=== PATIENT | female | born 1995 | race African-American/Black ===

== ENCOUNTER 2020-12-27 06:18 | Inpatient (IN) | payer MEDICAID ==
[~2020-12-27] VITALS: Ht 180.3 cm; Wt 111.9 kg
[2020-12-27] MEDS ORDERED: HALOPERIDOL 5 MG TABLET PO PRN (08:45)
[2020-12-27] MEDS ORDERED: LORazepam 1 MG TABLET PO PRN (08:45)
[2020-12-27] MEDS ORDERED: ZOLPIDEM TARTRATE 10 MG TABLET PO PRN (08:45)
[2020-12-27] MEDS ORDERED: DiphenhydrAMINE HCL 50 MG/ML VIAL IM ONE (09:15)
[2020-12-27] MEDS ORDERED: HALOPERIDOL LACTATE 5 MG/ML VIAL IM ONE (09:15)
[2020-12-27] MEDS ORDERED: LORazepam 2 MG/ML VIAL IM ONE (09:15)
[2020-12-27] MEDS ORDERED: INFLUENZA VIRUS VACCINE QVS 2020-21 (6MO+)/PF 60 MCG/0.5 ML SYRINGE IM ONE (12:45)
[2020-12-27 16:09] VITALS: BP 133/88
[2020-12-28] VITALS: BP 136/74
[2020-12-28] MEDS ORDERED: BENZOCAINE/MENTHOL LOZENGE PO PRN (06:15)
[2020-12-28] MEDS ORDERED: BACITRACIN 28 GM OINTMENT TP PRN (06:15)
[2020-12-28] MEDS ORDERED: MAG HYDROX/AL HYDROX/SIMETH ES 30 ML SUSPENSION UDCUP PO PRN (06:15)
[2020-12-28] MEDS ORDERED: DOCUSATE SODIUM 100 MG CAPSULE PO PRN (06:15)
[2020-12-28] MEDS ORDERED: ACETAMINOPHEN 325 MG TABLET PO PRN (06:15)
[2020-12-28] MEDS ORDERED: ONDANSETRON HCL 4 MG TABLET PO PRN (06:15)
[2020-12-28] MEDS ORDERED: ALBUTEROL SULFATE HFA 90 MCG/PUFF 8 GM INHALER IH PRN (06:15)
[2020-12-28] MEDS ORDERED: OMEPRAZOLE 20 MG CAPSULE PO PRN (06:15)
[2020-12-28] MEDS ORDERED: PETROLATUM,WHITE 28 GM JELLY TP PRN (06:15)
[2020-12-28] MEDS ORDERED: MAGNESIUM HYDROXIDE SUSPENSION 30 ML UDCUP PO PRN (06:15)
[2020-12-28] MEDS ORDERED: LOPERAMIDE HCL 2 MG CAPSULE PO PRN (06:15)
[2020-12-28] MEDS ORDERED: IBUPROFEN 600 MG TABLET PO PRN (06:15)
[2020-12-28] MEDS ORDERED: CloNIDine HCL 0.1 MG TABLET PO PRN (06:15)
[2020-12-28 08:15] VITALS: BP 126/73
[2020-12-28 20:05] VITALS: BP 130/92
[2020-12-29 00:34] VITALS: BP 124/86
[2020-12-29 08:09] VITALS: BP 129/82
[2020-12-29 09:24] LABS: BASOPHILS % (AUTO) 0.4 % (0.0-2.0); EOSINOPHILS % (AUTO) 1.2 % (1.0-6.0); HEMATOCRIT 36.8 % (36-46); HEMOGLOBIN 12.4 g/dL (12.0-16.0); LYMPHOCYTES % (AUTO) 15.9 % (22.0-44.0); MEAN CORPUSCULAR HEMOGLOBIN 32.1 pg (26.0-34.0); MEAN CORPUSCULAR HGB CONC 33.7 G/dL (31.0-37.0); MEAN CORPUSCULAR VOLUME 95 fL (80-100); MONOCYTES # (AUTO) 0.7 K/uL (0.1-1.0); MONOCYTES % (AUTO) 5.5 % (2.0-9.0); NEUTROPHILS # (AUTO) 9.6 K/uL (1.8-7.7); PLATELET COUNT (AUTO) 277 K/uL (150-450); RED BLOOD CELL COUNT(AUTO) 3.86 MIL/uL (4.00-5.20); RED CELL DISTRIBUTION WIDTH 13.8 % (11.5-14.5)
[2020-12-29 09:34] LABS: HEMOGLOBIN A1C 4.7 % (3.8-5.6)
[2020-12-29 09:56] LABS: ALANINE AMINOTRANSFERASE 25 U/L (12-78); ALKALINE PHOSPHATASE 90 U/L (46-116); ANION GAP 13 mmol/L (8-16); ASPARTATE AMINOTRANSFERASE 18 U/L (15-37); BILIRUBIN,TOTAL 0.7 mg/dL (0.1-1.0); CALCIUM, TOTAL 9.9 mg/dL (8.8-10.5); CARBON DIOXIDE 26 mmol/L (22-29); CHLORIDE 97 mmol/L (98-107); CHOLESTEROL 246 mg/dL (131-200); CREATININE 0.93 mg/dL (0.60-1.30); FREE T4 (FREE THYROXINE) 1.39 ng/dL (0.76-1.46); GLOMERULAR FILTR. RATE CALC > 60 mL/min (>60); GLUCOSE,RANDOM 106 mg/dL (70-110); HCG,QUANTITATIVE < 1 mIU/mL (0-6); HDL CHOLESTEROL 41 mg/dL (40-60); LDL CHOL (CALC.) 184 mg/dL (0-130); POTASSIUM 3.2 mmol/L (3.5-5.1); SODIUM SERUM 136 mmol/L (136-145); THYROID STIMULATING HORMONE 2.45 uIU/mL (0.36-3.74); TOTAL PROTEIN, SERUM 7.9 g/dL (6.4-8.2); TRIGLYCERIDES 104 mg/dL (15-150); UREA NITROGEN, BLOOD 9 mg/dL (7-18)
== END 2020-12-29 14:40 | disposition home or self-care (01) | DRG 750 ==
LOC: B3A 08:42
PROVIDERS: ADMIT Psychiatry & Neurology Psychiatry; ATTEND Psychiatry & Neurology Psychiatry
DX: F20.9 Schizophrenia, unspecified (principal); F41.9 Anxiety disorder, unspecified; Z72.0 Tobacco use; G47.00 Insomnia, unspecified; K59.00 Constipation, unspecified; F19.10 Other psychoactive substance abuse, uncomplicated; Z71.6 Tobacco abuse counseling
CPT/HCPCS: 83036; 84439; 84443; 87081